=== PATIENT | female | born 1990 | race Hispanic/Latino ===

== ENCOUNTER 2019-04-07 21:58 | Emergency (ER) | payer BC, OTHER ==
[2019-04-07] MEDS ORDERED: NA CHLORIDE 0.9% 1,000 ML ONE (23:04)
[2019-04-08 00:22] LABS: Absolute Lymphocytes (CBC) 2.5 K/uL (0.7-4.9); Basophils % 0.4 % (0-1.3); Hematocrit 34.9 % (36.0-45.0); Lymphocytes % 29.3 % (15.3-44.8); MPV 9.9 fL (7.6-11.3); RBC Red Blood Cell Count 4.46 M/uL (3.86-4.86)
--- NOTE | 2019-04-08 00:54 | EDPHYS ---
Physician Documentation [facility] Name: Marylu Melendez Age: 28 yrs Sex: Female : 1990 Arrival Date: 04/07/2019 Time: 22:04 Bed 19 Private MD: ED Physician Curtis Ferguson HPI: 04/07 23:05 This 28 yrs old Female presents to ER via Ambulatory with complaints of snw Vaginal Bleeding. 23:05 The patient presents with vaginal bleeding that is heavy. Onset: The symptoms/episode snw began/occurred suddenly, 15 day(s) ago, and became persistent. Associated signs and symptoms: Pertinent positives: soreness to lower abdomen. Severity of symptoms: At their worst the symptoms were moderate. The patient's method of control includes BCP, tubal ligation. + menorrhagia but not for so long. 23:06 The patient has been recently seen by a physician: with similar presenting complaints, snw started pt on bcp. 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 - Coronavirus screen:: The patient has NOT traveled to [place] in the past 14 days. The patient has NOT had contact with known/suspected case of Coronavirus? Proceed with normal triage procedures. - Social history:: Smoking status: Patient denies any tobacco usage or history of. - Ebola Screening: : No symptoms or risks identified at this time. ROS: 23:04 Constitutional: Negative for fever, chills, and weight loss, Eyes: Negative for injury, snw pain, redness, and discharge, ENT: Negative for injury, pain, and discharge, Neck: Negative for injury, pain, and swelling, Cardiovascular: Negative for chest pain, palpitations, and edema, Respiratory: Negative for shortness of breath, cough, wheezing, and pleuritic chest pain, Abdomen/GI: Negative for abdominal pain, nausea, vomiting, diarrhea, and constipation, Back: Negative for injury and pain, MS/Extremity: Negative for injury and deformity, Skin: Negative for injury, rash, and discoloration. 23:04 : Positive for vaginal bleeding, menstrual abnormality. 23:04 Neuro: Positive for dizziness. Exam: 23:03 Constitutional: This is a well developed, well nourished patient who is awake, alert, snw and in no acute distress. Head/Face: Normocephalic, atraumatic. Eyes: Pupils equal round and reactive to light, extra-ocular motions intact. Lids and lashes normal. Conjunctiva and sclera are non-icteric and not injected. Cornea within normal limits. Periorbital areas with no swelling, redness, or edema. ENT: Nares patent. No nasal discharge, no septal abnormalities noted. Tympanic membranes are normal and external auditory canals are clear. Oropharynx with no redness, swelling, or masses, exudates, or evidence of obstruction, uvula midline. Mucous membranes moist. Neck: Trachea midline, no thyromegaly or masses palpated, and no cervical lymphadenopathy. Supple, full range of motion without nuchal rigidity, or vertebral point tenderness. No Meningismus. Chest/axilla: Normal chest wall appearance and motion. Nontender with no deformity. No lesions are appreciated. 23:03 Respiratory: Lungs have equal breath sounds bilaterally, clear to auscultation and percussion. No rales, rhonchi or wheezes noted. No increased work of breathing, no retractions or nasal flaring. Back: No spinal tenderness. No costovertebral tenderness. Full range of motion. Skin: Warm, dry with normal turgor. Normal color with no rashes, no lesions, and no evidence of cellulitis. MS/ Extremity: Pulses equal, no cyanosis. Neurovascular intact. Full, normal range of motion. Neuro: Awake and alert, GCS 15, oriented to person, place, time, and situation. Cranial nerves II-XII grossly intact. Motor strength 5/5 in all extremities. Sensory grossly intact. Cerebellar exam normal. Normal gait. Psych: Awake, alert, with orientation to person, place and time. Behavior, mood, and affect are within normal limits. 23:03 Cardiovascular: Rate: tachycardic, Heart sounds: normal. 23:03 Abdomen/GI: Inspection: abdomen appears normal, Bowel sounds: normal, Palpation: mild abdominal tenderness, in all quadrants. Vital Signs: 22:20 BP 148 / 82; Pulse 113; Resp 16; Temp 98.(O); Pulse Ox 97% ; Weight 108.86 kg; Height 4 hb ft. 11 in. (149.86 cm); Pain 5/10; 23:30 BP 126 / 68; Pulse 91; Resp 15; Pulse Ox 99% on R/A; hb 04/08 00:40 BP 107 / 58; Pulse 86; Resp 17; Temp 98(O); Pulse Ox 99% on R/A; rr5 04/07 22:20 Body Mass Index 48.47 (108.86 kg, 149.86 cm) hb MDM: 04/07 22:16 Patient medically screened. snw 04/08 00:53 Data reviewed: vital signs, nurses notes. Data interpreted: Pulse oximetry: on room air snw is 99 %. Interpretation: normal. Counseling: I had a detailed discussion with the patient and/or guardian regarding: the historical points, exam findings, and any diagnostic results supporting the discharge/admit diagnosis, lab results, radiology results, the need for outpatient follow up, to return to the emergency department if symptoms worsen or persist or if there are any questions or concerns that arise at home. Special discussion: Based on the history and exam findings, there is no indication for further emergent testing or inpatient evaluation. I discussed with the patient/guardian the need to see the OB Gyne specialist for further evaluation of the symptoms. I discussed with the patient/guardian the need to see the primary care provider for further evaluation of the symptoms. 04/07 22:58 Order name: CBC with Diff snw 04/07 22:58 Order name: Chem 7 snw 04/07 22:58 Order name: TS snw 04/07 22:58 Order name: TSH snw 04/08 00:24 Order name: CBC with Automated Diff EDMS 04/08 00:39 Order name: Basic Metabolic Panel; Complete Time: 00:51 EDMS 04/07 22:58 Order name: US Transvaginal Study (Probe) snw 04/08 00:38 Order name: Recheck VS; Complete Time: 00:43 snw 04/08 00:44 Order name: Thyroid Stimulating Hormone; Complete Time: 00:51 EDMS Administered Medications: 04/07 23:45 Drug: NS 0.9% 1000 ml Route: IV; Rate: 125 ml/hr; Site: right antecubital; hb 04/08 01:15 Follow up: IV Status: Completed infusion; IV Intake: 250ml hb Disposition: 06:12 Co-signature as Attending Physician, Curtis Ferguson MD I agree with the assessment and kdr plan of care. Disposition: 04/08/19 00:52 Discharged to Home. Impression: Dysmenorrhea, unspecified - Menorrhagia, Iron deficiency anemia, unspecified. - Condition is Stable. - Discharge Instructions: Iron Deficiency Anemia, Adult, Iron-Rich Diet, Dysmenorrhea, Menorrhagia, Intrauterine Device Insertion. - Prescriptions for Mobic 7.5 mg Oral Tablet - take 1 tablet by ORAL route once daily take with food; 20 tablet. - Medication Reconciliation Form, Thank You Letter, Antibiotic Education, Prescription Opioid Use form. - Follow up: Emergency Department; When: As needed; Reason: Worsening of condition. Follow up: Private Physician; When: 2 - 3 days; Reason: Recheck today's complaints, Continuance of care, Re-evaluation by your physician. Signatures: Dispatcher [employer] EDOH Curtis Ferguson MD MD kdr Therrien, Shelly, TRANSPORTATION SUPERINTENDENT-C TRANSPORTATION SUPERINTENDENT-Csnw Priti Rebollar, RN RN hb Corrections: (The following items were deleted from the chart) 04/07 22:29 22:20 PSHx: Hysterectomy; hb hb 04/08 01:16 00:52 04/08/2019 00:52 Discharged to Home. Impression: Dysmenorrhea, unspecified - hb Menorrhagia; Iron deficiency anemia, unspecified. Condition is Stable. Forms are Medication Reconciliation Form, Thank You Letter, Antibiotic Education, Prescription Opioid Use. Follow up: Emergency Department; When: As needed; Reason: Worsening of condition. Follow up: Private Physician; When: 2 - 3 days; Reason: Recheck today's complaints, Continuance of care, Re-evaluation by your physician. snw
--- NOTE | 2019-04-08 00:54 | ER ---
Nurse's Notes [facility] Name: Marylu Melendez Age: 28 yrs Sex: Female : 1990 Arrival Date: 04/07/2019 Time: 22:04 Bed 19 Private MD: Diagnosis: Dysmenorrhea, unspecified-Menorrhagia;Iron deficiency anemia, unspecified Presentation: 04/07 22:20 Presenting complaint: heavy menstrual bleeding x 2 weeks. Pt reports going through 1 hb tampon/hr. Also c/o feeling lightheaded + abdominal cramping. Transition of care: patient was not received from another setting of care. Onset of symptoms was April 07, 2019. Risk Assessment: Do you want to hurt yourself or someone else? Patient reports no desire to harm self or others. Initial Sepsis Screen: Does the patient meet any 2 criteria? No. Patient's initial sepsis screen is negative. Does the patient have a suspected source of infection? No. Patient's initial sepsis screen is negative. Care prior to arrival: None. 22:20 Method Of Arrival: Ambulatory hb 22:20 Acuity: CON 3 hb Triage Assessment: 22:20 General: Appears in no apparent distress. Behavior is calm, cooperative. Pain: Pain hb currently is 5 out of 10 on a pain scale. EENT: No signs and/or symptoms were reported regarding the EENT system. Neuro: Level of Consciousness is awake, alert, obeys commands, Oriented to person, place, time, situation. Cardiovascular: Capillary refill < 3 seconds Patient's skin is warm and dry. Respiratory: Airway is patent Respiratory effort is even, unlabored, Respiratory pattern is regular, symmetrical. GI: Reports cramping. : Reports vaginal bleeding that is with clots, heavy flow. Derm: Skin is intact, is healthy with good turgor. Musculoskeletal: No signs and/or symptoms reported regarding the musculoskeletal system. 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 - Coronavirus screen:: The patient has NOT traveled to [place] in the past 14 days. The patient has NOT had contact with known/suspected case of Coronavirus? Proceed with normal triage procedures. - Social history:: Smoking status: Patient denies any tobacco usage or history of. - Ebola Screening: : No symptoms or risks identified at this time. Screenin:23 Abuse screen: Denies threats or abuse. Denies injuries from another. Nutritional hb screening: No deficits noted. Tuberculosis screening: No symptoms or risk factors identified. Fall Risk None identified. Assessment: 22:22 General: SEE TRIAGE ASSESSMENT. hb 23:12 Reassessment: US at bedside. hb 23:30 Reassessment: Patient appears in no apparent distress at this time. Patient and/or hb family updated on plan of care and expected duration. Pain level reassessed. Patient is alert, oriented x 3, equal unlabored respirations, skin warm/dry/pink. 04/08 00:30 Reassessment: Patient appears in no apparent distress at this time. Patient and/or hb family updated on plan of care and expected duration. Pain level reassessed. Patient is alert, oriented x 3, equal unlabored respirations, skin warm/dry/pink. 01:10 Reassessment: Patient appears in no apparent distress at this time. Patient and/or hb family updated on plan of care and expected duration. Pain level reassessed. Patient is alert, oriented x 3, equal unlabored respirations, skin warm/dry/pink. Vital Signs: 04/07 22:20 BP 148 / 82; Pulse 113; Resp 16; Temp 98.(O); Pulse Ox 97% ; Weight 108.86 kg; Height 4 hb ft. 11 in. (149.86 cm); Pain 5/10; 23:30 BP 126 / 68; Pulse 91; Resp 15; Pulse Ox 99% on R/A; hb 04/08 00:40 BP 107 / 58; Pulse 86; Resp 17; Temp 98(O); Pulse Ox 99% on R/A; rr5 04/07 22:20 Body Mass Index 48.47 (108.86 kg, 149.86 cm) ED Course: 04/07 22:04 Patient arrived in ED. es 22:14 Priti Rebollar, RN is Primary Nurse. hb 22:15 Shannon Stuart FNP-C is PHCP. snw 22:15 Curtis Ferguson MD is Attending Physician. snw 22:19 Arm band placed on. hb 22:22 Triage completed. hb 22:23 Patient has correct armband on for positive identification. Placed in gown. Bed in low hb position. Call light in reach. Side rails up X 1. 23:28 Ultrasound completed. Patient tolerated well. Notified HOME MANAGEMENT SUPERVISOR/PA . sg3 23:40 US Transvaginal Study (Probe) Sent. hb 23:50 Inserted saline lock: 20 gauge in right antecubital area, using aseptic technique. oe Blood collected. 04/08 01:15 No provider procedures requiring assistance completed. IV discontinued, intact, hb bleeding controlled, No redness/swelling at site. Pressure dressing applied. Administered Medications: 04/07 23:45 Drug: NS 0.9% 1000 ml Route: IV; Rate: 125 ml/hr; Site: right antecubital; hb 04/08 01:15 Follow up: IV Status: Completed infusion; IV Intake: 250ml hb Intake: 01:15 IV: 250ml; Total: 250ml. hb Outcome: 00:52 Discharge ordered by . snw 01:15 Discharged to home ambulatory, with family. hb 01:15 Condition: stable 01:15 Discharge instructions given to patient, Instructed on discharge instructions, follow up and referral plans. medication usage, Demonstrated understanding of instructions, follow-up care, medications, Prescriptions given X 1. 01:16 Patient left the ED. hb Signatures: Shannon Stuart, FUEL TANK SEALER AND TESTER-C FUEL TANK SEALER AND TESTER-Csnw Bri Buenrostro Heather RN RN hb Ozzie Erickson Sarah sg3 Cristian Boswell, RN RN rr5 Corrections: (The following items were deleted from the chart) 04/07 22:29 22:20 PSHx: Hysterectomy; hb hb
[2019-04-08 01:45] LABS: Anisocytosis 1+; Blood Morphology Comment NOTED (NOT SEEN); Platelet Estimate ADEQ; Urine White Blood Cell Casts OK
[2019-04-08 02:30] VITALS: TEMP 98
[2019-04-08 02:32] VITALS: O2SAT 99
[2019-04-08 02:33] VITALS: BP 107/58
--- NOTE | 2019-04-08 08:53 | RAD REPORT ---
EXAM DESCRIPTION: US - Transvaginal Study Probe - 04/07/2019 11:29 pm CLINICAL HISTORY: VAGINAL BLEEDING, hyper menorrhagia COMPARISON: No comparisons TECHNIQUE: Endovaginal sonography was performed. FINDINGS: Uterus is normal in size with no myometrial mass. Thin endometrial stripe is present with no mass, polyp, hematoma or other endometrial abnormality. No blood or fluid in the cul de sac. Normal right ovary seen. Small cysts/follicles noted. No right adnexal abnormality. Left ovary was mo re difficult to visualize. No left ovarian or left adnexal abnormality seen. Doppler evaluation shows normal blood flow in the ovarian stroma. Preliminary findings provided at the time of the study. IMPRESSION: Unremarkable endovaginal pelvic ultrasound as detailed.
== END 2019-04-08 01:16 | disposition home or self-care (01) ==
LOC: ER 21:58
DX: N92.0 Excessive and frequent menstruation with regular cycle (principal); D50.9 Iron deficiency anemia, unspecified
CPT/HCPCS: 85025; 80048; 36415; 86900; 86850; 86901; 84443; 76830; 96360; 99284; J7030